=== PATIENT | female | born 1995 | race Caucasian/White ===

== ENCOUNTER → 2021-05-01 | Outpatient (CLI) | payer OTHER ==
--- NOTE | 2021-05-01 12:43 | REP ---
INDICATION: PREG, F/U ANATOMY-HEART, GROWTH. COMPARISON: None. TECHNIQUE: Real-time sonographic evaluation of the gravid uterus performed. FINDINGS: Estimated gestational age is28 weeks 0 days, EDC 07/24/2021. Today's measurements indicate appropriate growth. Presentation: Footling breech Placenta anterior, grade 1, without evidence of placenta previa. heart rate is recorded at 144 beats per minute. Amniotic fluid is subjectively normal. SRIKANTH 17.8, normal range 9.4-22.8. Closed cervical length is measured at 5.1 cm. Biometry chart: BPD: 72 mm, 29 weeks 0 days, 70th percentile. HC: 269 mm, 29 weeks 2 days, 78th percentile AC: 253 mm, 29 weeks 4 days, 81st percentile Femur length: 57 mm, 29 weeks 6 days, 89th percentile HC to AC ratio: 1.06, normal range 0.99-1.18. Estimated weight: 1414g, 90th percentile. SD ratio umbilical artery 2.46, normal 2.09-4.36. RI 0.59, normal 0.55-0.78. The visualized anatomy today includes cranium, facial structures, stomach, kidneys, bladder and three-vessel cord which are all grossly unremarkable. The heart structures are not well seen due to position. IMPRESSION: Viable single intrauterine gestation as above. Heart structures not well seen due to position. <Electronically signed by Buck Hernandez > 05/01/21 [id number]
== END ==
LOC: M RAD 11:15
PROVIDERS: ATTEND Registered Nurse Maternal Newborn
DX: Z34.82 Encounter for supervision of other normal pregnancy, second trimester (principal); Z3A.28 28 weeks gestation of pregnancy

== ENCOUNTER 2021-05-07 23:57 | Outpatient (CLI) | payer OTHER ==
[~2021-05-07] VITALS: Ht 160 cm; Wt 86.4 kg
[2021-05-08 00:26] VITALS: BP 120/66
[2021-05-08] MEDS ORDERED: PROMETHAZINE INJ 25 MG/ML VIAL (J2550) IV ONE (00:30)
[2021-05-08] MEDS ORDERED: LR 1,000 ML IV ONE (00:30)
[2021-05-08] MEDS ORDERED: ONDANSETRON 4MG/2ML VIAL IV SCH (01:00)
--- NOTE | 2021-05-08 01:08 | IPNPDOC ---
Obstetrical Progress Note Date of Service May 08, 2021 Subjective Ms. Tierney is a 25yo at 29wk gestation who presents to triage with nausea and vomiting since 10pm this evening. She denied diarrhea, chest pain, shortness of breath, fevers, chills, body aches, URI symptoms, sick contacts, vaginal bleeding, loss of fluid, contractions. She reports some decrease in movement, but still persistent movement. Assessment Variability: Moderate Accelerations: Positive Decelerations: None Heart Rate Tracing: Category I Tocometer Contractions: No Sterile Vaginal Examination Dilation: None Station: -3 Cervical Consistency: Firm Cervical Position: Posterior Assessment and Plan Additional Comments Ms. Tierney is a 25yo at 29wk gestation who presents to triage with nausea and vomiting since 10pm this evening. She denied any other symptoms or sick contacts. VS normal. NST AGA. No contractions on toco. Physical exam unremarkable, SVE C/T/H. CBC/CMP/UA/amylase/lipase/respiratory panel negative. She received 1000cc LR, IV zofran, and IV phenergan and her symptoms resolved and she desired to go home. Unable to determine etiology of vomiting at this time. Given findings labor is unlikely. She was COVID/Flu negative, had no electrolyte abnormalities, and no ketouria. Likely viral gastroenteritis. Return precautions given for PO intolerance, fever, new symptoms, other concerning symptoms. Routine OB return precautions given. Otherwise to follow up at next ELIZABETH ZAIDI DO May 08, 2021 01:08
[2021-05-08] MEDS ORDERED: ONDANSETRON 4MG/2ML VIAL As Ordered ONE (01:10)
[2021-05-08 01:15] LABS: HEMATOCRIT 29.8 % (36.0-47.0); HEMOGLOBIN 9.8 g/dl (12.0-15.5); MEAN CORPUSCULAR HEMOGLOBIN 28.9 pg (27.0-33.0); MEAN CORPUSCULAR HGB CONC 32.9 g/dl (32.0-36.5); MEAN CORPUSCULAR VOLUME 87.9 fl (80.0-96.0); PLATELET COUNT, AUTOMATED 240 10^3/uL (150-450); RED BLOOD COUNT 3.39 10^6/uL (4.00-5.40)
[2021-05-08] MEDS ORDERED: PRENTAB9 PO (01:54)
[2021-05-08] MEDS ORDERED: TUMS500C PO (01:54)
[2021-05-08 02:09] LABS: ALBUMIN 2.6 GM/DL (3.2-5.2); ALT/SGPT 16 U/L (12-78); AMYLASE 82 U/L (25-115); BILIRUBIN,TOTAL 0.2 MG/DL (0.2-1.0); BLOOD UREA NITROGEN 4 MG/DL (7-18); CALCIUM LEVEL 9.1 MG/DL (8.5-10.1); CARBON DIOXIDE LEVEL 23 MEQ/L (21-32); CHLORIDE LEVEL 109 MEQ/L (98-107); CREATININE FOR GFR 0.49 MG/DL (0.55-1.30); GLOMERULAR FILTRATION RATE > 60.0 (>60); GLUCOSE, FASTING 77 MG/DL (70-100); LIPASE 73 U/L (73-393); POTASSIUM SERUM 3.8 MEQ/L (3.5-5.1); SODIUM LEVEL 139 MEQ/L (136-145); TOTAL PROTEIN 6.1 GM/DL (6.4-8.2)
[2021-05-08 03:04] LABS: APPEARANCE, URINE CLEAR (CLEAR); BACTERIA, URINE AUTO NEGATIVE (NEGATIVE); BILIRUBIN, URINE AUTO NEGATIVE (NEGATIVE); BLOOD, URINE BLOOD NEGATIVE (NEGATIVE); COLOR, URINE STRAW (YELLOW); GLUCOSE, URINE (UA) AUTO NEGATIVE (NEGATIVE); KETONE, URINE AUTO NEGATIVE (NEGATIVE); LEUKOCYTE ESTERASE, URINE AUTO NEGATIVE (NEGATIVE); MUCUS, URINE SMALL (NEGATIVE); NITRITE, URINE AUTO NEGATIVE (NEGATIVE); PROTEIN, URINE AUTO NEGATIVE (NEGATIVE); RBC, URINE AUTO 0 /HPF (0-3); SPECIFIC GRAVITY URINE AUTO 1.006 (1.002-1.035); SQUAMOUS EPITHELIAL CELL UR AU 1 /HPF (0-6); UROBILINOGEN, URINE AUTO 0.2 mg/dL (0.0-2.0); WBC, URINE AUTO 1 /HPF (0-3)
[2021-05-08 03:29] VITALS: BP 84/46
[2021-05-08 03:52] VITALS: BP 106/60
== END 2021-05-08 04:00 | disposition home or self-care (01) ==
LOC: M LDO 23:57
PROVIDERS: ATTEND Obstetrics & Gynecology
DX: O21.8 Other vomiting complicating pregnancy (principal); Z3A.29 29 weeks gestation of pregnancy; Z20.822 Contact with and (suspected) exposure to COVID-19; Z91.09 Other allergy status, other than to drugs and biological substances
CPT/HCPCS: 59025; 80053; 81001; 82150; 83690; 85027; 87798; 96361; 96374; 96375; G0378; G0463; J2405

== ENCOUNTER 2021-06-12 16:46 | Outpatient (CLI) | payer OTHER ==
[~2021-06-12] VITALS: Ht 160 cm; Wt 90.2 kg
[~2021-06-12 16:46] MED LIST: PRENTAB9 PO; TUMS500C PO
[2021-06-12] MEDS ORDERED: ZOFR4TAB16 PO (17:06)
[2021-06-12] MEDS ORDERED: IRON65TA2 PO (17:06)
[2021-06-12 17:07] VITALS: BP 117/56
[2021-06-12] MEDS ORDERED: HOME MED LIST COMPLETE! XX SCH (17:10)
--- NOTE | 2021-06-12 17:34 | ED PDOC ---
Post-Departure Follow-Up Vital Signs Label Value Date Time Patient Temperature 99.4 degrees F 06/12/211706 Temperature Source Temporal 06/12/211706 Pulse 88 06/12/211706 Respiratory Rate 18 bpm 06/12/211706 Blood Pressure Assessment 117/56 (76) 06/12/211706 Source Automatic Cuff (NIBP) 06/12/2021 patient 25 yo G1 PO AT 34 WEEKS BY EARLY US 11.2 WEEKS HISTORY WAS OCCASIONAL DISCHARGE X 24 HOURS INTERMITTENT STOPPED AND STARTED ALL DAY DID NOT WEAR PAD IN . NO CONTRACTIONS NO BLEEDING . [facility] NO RISK FACTORS RH NEGATIVE CARDIAC VIEW NOT COMPLETE PHYSICAL EXAMINATION NO ACUTE DISTRESS NO CONTRACTIONS VITALS STABLE CATEGORY 1 STRIP ACCELERATIONS NOTED NO DECELERATIONS MODERATE VARIABILITY . STERILE SPECULUM EXAMINATION NO DISCHARGE NO POOLING CERVIX CLOSED NITRAZINE NEGATIVE CERVIX LONG CLOSED THICK' REVIEWED PRECAUTIONS WEAR PAD CALL WITH EMERGENCY [facility] BR[facility] OB PASSPORT . DISCHARGED UNDELIVERED APPOINTMENT FOLLOW UP 06/26/21 Jacobo Perry MD Jun 12, 2021 17:34
== END 2021-06-12 17:35 | disposition home or self-care (01) ==
LOC: M LDO 16:46
PROVIDERS: ATTEND Obstetrics & Gynecology
DX: O26.893 Other specified pregnancy related conditions, third trimester (principal); Z3A.34 34 weeks gestation of pregnancy
CPT/HCPCS: 59025; G0378; G0463

== ENCOUNTER 2021-07-23 11:37 | Outpatient (CLI) | payer OTHER ==
[~2021-07-23] VITALS: Ht 160 cm; Wt 95.1 kg
[~2021-07-23 11:37] MED LIST changes: +IRON65TA2 PO; +ZOFR4TAB16 PO
[2021-07-23 11:55] VITALS: BP 99/55
[2021-07-23] MEDS ORDERED: HOME MED LIST COMPLETE! XX SCH (11:55)
[2021-07-23 12:12] VITALS: BP 107/55
== END 2021-07-23 12:42 | disposition home or self-care (01) ==
LOC: M LDO 11:37
PROVIDERS: ATTEND Advanced Practice Midwife
DX: O60.03 Preterm labor without delivery, third trimester (principal); Z3A.39 39 weeks gestation of pregnancy
CPT/HCPCS: 59025; G0378; G0463

== ENCOUNTER 2021-07-25 08:03 | Inpatient (IN) | payer OTHER ==
[2021-07-25] VITALS (41 sets, daily range): BP systolic 98–141; BP diastolic 52–84
[~2021-07-25] VITALS: Ht 160 cm; Wt 95.2 kg
[2021-07-25] MEDS ORDERED: HOME MED LIST COMPLETE! XX SCH (08:35)
[2021-07-25] MEDS ORDERED: OXYTOCIN INJ 10 UNITS/ML VIAL (J2590) IV PRN (09:25)
[2021-07-25] MEDS ORDERED: METHYLERGONOVINE MALEATE 0.2 MG/ML VIAL (J2210) IM PRN (09:25)
[2021-07-25] MEDS ORDERED: OXYTOCIN DRIP 30 UNITS in IV 1 EA IV PRN (09:25)
[2021-07-25 09:56] LABS: HEMOGLOBIN 10.1 g/dl (12.0-15.5); MEAN CORPUSCULAR HEMOGLOBIN 25.7 pg (27.0-33.0); MEAN CORPUSCULAR HGB CONC 30.6 g/dl (32.0-36.5); PLATELET COUNT, AUTOMATED 271 10^3/uL (150-450); RED BLOOD COUNT 3.93 10^6/uL (4.00-5.40); WHITE BLOOD COUNT 9.4 10^3/uL (4.0-10.0)
[2021-07-25] MEDS ORDERED: LACTATED RINGER'S 1000 ML IV ONE (10:15)
[2021-07-25] MEDS: LR 1,000 ML IV SCH ×2 (11:12→22:33)
[2021-07-25] MEDS ORDERED: FENTANYL 2MCG/ML ROPIVACAINE 0.2% IN 0.9% NACL 100ML IVBAG As Ordered ONE (13:43)
[2021-07-25] MEDS ORDERED: diphenhydrAMINE 50MG/ML VIAL (J1200) IV PRN (14:20)
[2021-07-25] MEDS ORDERED: LACTATED RINGER'S 1000 ML IV PRN (14:20)
[2021-07-25] MEDS ORDERED: EPIDURAL COMMENT XX SCH (14:20)
[2021-07-25] MEDS ORDERED: ePHEDrine SULFATE 25 MG/5 ML(5MG/ML) SYRINGE IV PRN (14:20)
[2021-07-25] MEDS ORDERED: ONDANSETRON 4MG/2ML VIAL IV PRN (14:20)
[2021-07-25] MEDS ORDERED: EPIDURAL/PCA KEYS XX PRN (14:20)
[2021-07-25] MEDS ORDERED: NALOXONE INJ 0.4MG/1ML VIAL (J2310 PER 1MG) IV PRN (14:20)
[2021-07-25] MEDS ORDERED: REFRIGERATOR IV KEYS XX PRN (14:20)
[2021-07-25] MEDS: FENTANYL/ROPIVACAINE/NACL BAG 100 ML EPIDURAL SCH ×2 (14:47→22:16)
[2021-07-25] MEDS ORDERED: OXYTOCIN DRIP 30 UNITS in IV 1 EA IV SCH (16:20)
[2021-07-25] MEDS: FAMOTIDINE 20 MG TAB PO SCH (18:03)
[2021-07-25] MEDS: MAALOX 30 ML SUSP *UDC PO PRN (18:03)
[2021-07-26] VITALS (23 sets, daily range): BP systolic 108–141; BP diastolic 55–78
[2021-07-26] MEDS: LR 1,000 ML IV SCH (00:10)
[2021-07-26] MEDS ORDERED: BICITRA 30ML SOLN UDC PO ONE (03:10)
[2021-07-26] MEDS ORDERED: AZITHROMYCIN INJ 500 MG, VIAL MATE ADAPTER 1 EACH in NS 250 ML IV ONE (03:10)
[2021-07-26] MEDS ORDERED: BUPIVACAINE HCL 0.25% 10ML VIAL SC ONE (03:10)
[2021-07-26] MEDS ORDERED: ACETAMINOPHEN 650 MG SUPP PR ONE (03:10)
[2021-07-26] MEDS ORDERED: ceFAZolin SOD 2 GM in IV 1 EA IV ONE (03:10)
[2021-07-26] MEDS ORDERED: ONDANSETRON 4MG/2ML VIAL As Ordered ONE (03:34)
[2021-07-26] MEDS ORDERED: KETOROLAC 60MG 2ML VIAL As Ordered ONE (03:34)
[2021-07-26] MEDS ORDERED: MORPHINE PRES-FREE INJ 10 MG/10 ML VIAL (J2274) As Ordered ONE (03:34)
[2021-07-26] MEDS ORDERED: dexameTHASONE 4 MG/ML 1ML VIAL (J1100 PER 1MG) As Ordered ONE ×2 (03:34→04:40)
[2021-07-26] MEDS ORDERED: OXYTOCIN INJ 10 UNITS/ML VIAL (J2590) As Ordered ONE ×2 (03:34→04:40)
[2021-07-26] MEDS ORDERED: LIDOCAINE 2% W/EPINEPHRINE 20ML VIAL **PRES FREE As Ordered ONE (03:38)
[2021-07-26] MEDS ORDERED: fentaNYL 100 MCG/2 ML INJECTION As Ordered ONE (03:43)
[2021-07-26] MEDS ORDERED: KETAMINE HCL 200 MG/20 ML VIAL As Ordered ONE (04:03)
[2021-07-26 04:25] LABS: CORD GAS ABE A -5.3; CORD GAS HCO3 A 22.6 MEQ/L; CORD GAS O2 SAT A 16.2 %; CORD GAS PCO2 A 53.9 mmHg; CORD GAS PH A 7.24 UNITS; CORD GAS PO2 A 12.5 mmHg; CORD GAS SBC A 18.4 MEQ/L; CORD GAS TCO2 A 24.2 MEQ/L
[2021-07-26 04:26] LABS: CORD GAS ABE V -6.2; CORD GAS O2 SAT V 39.9 %; CORD GAS PCO2 V 47.8 mmHg; CORD GAS PH V 7.261 UNITS; CORD GAS PO2 V 21.5 mmHg; CORD GAS SBC V 18.2 MEQ/L; CORD GAS TCO2 V 22.5 MEQ/L
[2021-07-26] MEDS ORDERED: NALBUPHINE HCL 10 MG/ML AMP (J2300) IV PRN (04:43)
[2021-07-26] MEDS ORDERED: diphenhydrAMINE 50MG/ML VIAL (J1200) IV PRN (04:43)
[2021-07-26] MEDS ORDERED: METOCLOPRAMIDE INJ 10MG/2ML VIAL (J2765 PER 1) IV PRN (04:43)
[2021-07-26] MEDS ORDERED: ONDANSETRON 4MG/2ML VIAL IV PRN ×2 (04:43→05:15)
[2021-07-26] MEDS ORDERED: NALOXONE INJ 0.4MG/1ML VIAL (J2310 PER 1MG) IV PRN ×2 (04:43)
[2021-07-26] MEDS ORDERED: NORCO, ANEXSIA 5/325MG TABLET (HYDROcodone/ACETAMINOPHEN) PO PRN (05:15)
[2021-07-26] MEDS ORDERED: fentaNYL 100 MCG/2 ML INJECTION IV PRN (05:15)
[2021-07-26] MEDS ORDERED: MEPERIDINE INJ 25 MG/ML VIAL (J2175) IV PRN (05:15)
[2021-07-26] MEDS ORDERED: ANUSOL HC CREAM 30GM TOP PRN (05:20)
[2021-07-26] MEDS ORDERED: RHOGAM 300 MCG (1500 IU) INJ (J2790) IM SCH (05:20)
[2021-07-26] MEDS ORDERED: PERCOCET 5MG/325MG TAB PO PRN (05:20)
[2021-07-26] MEDS ORDERED: ACETAMINOPHEN TAB 650MG DOSE (2X325MG) PO PRN (05:20)
[2021-07-26] MEDS ORDERED: OXYTOCIN DRIP 30 UNITS in IV 1 EA IV ONE (05:20)
[2021-07-26] MEDS ORDERED: MOM 30ML SUSPENSION UDC PO PRN (05:20)
[2021-07-26] MEDS ORDERED: METHYLERGONOVINE MALEATE 0.2 MG TAB PO PRN (05:20)
[2021-07-26] MEDS ORDERED: ACETAMINOPHEN 500 MG TAB PO PRN (05:20)
[2021-07-26] MEDS ORDERED: OXYTOCIN INJ 10 UNITS/ML VIAL (J2590) IV ONE (05:20)
[2021-07-26] MEDS ORDERED: MEASLES,MUMPS,RUBELLA VACCINE INJ (MMR-II) (90707) SC SCH (05:20)
[2021-07-26] MEDS ORDERED: LR 1,000 ML IV SCH (05:20)
[2021-07-26] MEDS: PRENATAL VITAMINS CHEWABLE TABLET PO SCH (08:24)
[2021-07-26] MEDS: FAMOTIDINE 20 MG TAB PO SCH (08:24)
[2021-07-26] MEDS: KETOROLAC 30 MG/ML 1ML VIAL IV SCH ×3 (09:13→21:51)
[2021-07-26] MEDS: SIMETHICONE 80MG CHEW TAB PO PRN (20:34)
[2021-07-26] MEDS: DOCUSATE SODIUM 100MG CAPSULE PO PRN (20:34)
[2021-07-26] MEDS: MAALOX 30 ML SUSP *UDC PO PRN (20:34)
[2021-07-27 02:15] VITALS: BP 112/58
[2021-07-27] MEDS: IBUPROFEN 800 MG TAB PO SCH ×3 (05:16→22:02)
[2021-07-27] MEDS: PERCOCET 5MG/325MG TAB PO PRN ×4 (05:25→22:02)
[2021-07-27 06:00] VITALS: BP 118/59
[2021-07-27 06:02] LABS: HEMATOCRIT 23.7 % (36.0-47.0); MEAN CORPUSCULAR HGB CONC 30.8 g/dl (32.0-36.5); MEAN CORPUSCULAR VOLUME 84.3 fl (80.0-96.0); PLATELET COUNT, AUTOMATED 201 10^3/uL (150-450); RED BLOOD COUNT 2.81 10^6/uL (4.00-5.40); WHITE BLOOD COUNT 17.3 10^3/uL (4.0-10.0)
[2021-07-27 06:08] LABS: HEMOGLOBIN 7.3 g/dl (12.0-15.5)
[2021-07-27] MEDS ORDERED: NORCO, ANEXSIA 5/325MG TABLET (HYDROcodone/ACETAMINOPHEN) PO PRN (07:55)
[2021-07-27] MEDS ORDERED: KETOROLAC 30 MG/ML 1ML VIAL IV SCH (07:55)
[2021-07-27] MEDS: PRENATAL VITAMINS CHEWABLE TABLET PO SCH (08:59)
[2021-07-27] MEDS: FAMOTIDINE 20 MG TAB PO SCH (08:59)
[2021-07-27 10:00] VITALS: BP 122/58
[2021-07-27 14:00] VITALS: BP 117/57
[2021-07-27 18:00] VITALS: BP 131/71
[2021-07-27 22:00] VITALS: BP 138/78
[2021-07-27] MEDS: DOCUSATE SODIUM 100MG CAPSULE PO PRN (22:01)
[2021-07-28] MEDS: SIMETHICONE 80MG CHEW TAB PO PRN (00:14)
[2021-07-28 02:00] VITALS: BP 134/64
[2021-07-28] MEDS: PERCOCET 5MG/325MG TAB PO PRN (04:03)
[2021-07-28] MEDS: IBUPROFEN 800 MG TAB PO SCH (05:53)
[2021-07-28 06:04] VITALS: BP 125/74
[2021-07-28] MEDS ORDERED: ACET1TAB55 PO (06:25)
[2021-07-28] MEDS ORDERED: OXYC-517 PO (06:25)
[2021-07-28] MEDS ORDERED: COLA100C5 PO (06:25)
[2021-07-28] MEDS ORDERED: IBUP80TA PO (06:25)
[2021-07-28] MEDS ORDERED: PERCOCET PO (06:37)
[2021-07-28] MEDS: FAMOTIDINE 20 MG TAB PO SCH (08:26)
[2021-07-28] MEDS: PRENATAL VITAMINS CHEWABLE TABLET PO SCH (08:26)
== END 2021-07-28 10:27 | disposition home or self-care (01) | DRG 773 ==
LOC: M LDO 08:03 → M LDI 09:17 → M OBS 07-26 06:30
PROVIDERS: ADMIT Obstetrics & Gynecology; ATTEND Obstetrics & Gynecology
PROC: 10D00Z1 Extraction of Products of Conception, Low, Open Approach (ICD-10-PCS; principal; 2021-07-26 04:03)
DX: O77.0 Labor and delivery complicated by meconium in amniotic fluid (principal); O76 Abnormality in fetal heart rate and rhythm complicating labor and delivery; O64.0XX0 Obstructed labor due to incomplete rotation of fetal head, not applicable or unspecified; Z3A.40 40 weeks gestation of pregnancy; O64.8XX0 Obstructed labor due to other malposition and malpresentation, not applicable or unspecified; Z37.0 Single live birth; O75.89 Other specified complications of labor and delivery